=== PATIENT | male | born 1965 | race Two or more races ===

== ENCOUNTER 2016-12-27 22:25 | Inpatient (IN) | payer OTHER ==
--- NOTE | 2016-12-28 00:47 | PDOC ---
History of Present Illness - General History Source: Patient Exam Limitations: No Limitations - History of Present Illness Initial Comments: 12/28/16 01:13 The patient is a 51 year old male with no significant past medical history who presents to the ED with 2 days of left lower flank pain. Patient describes pain as 10/10, nonradiating and intermittent lasting 30 minutes to an hour. He states noting blood in his urine 3-4x yesterday. Denies dysuria, urgency, or frequency. He also reports vomiting once yesterday. The patient denies fever, chills, cough, SOB, chest pain, abdominal pain, and diarrhea. Allergies: NKDA Social History: No alcohol, tobacco, or drug use reported. Past Surgical History: appendectomy PCP: Dr. Chica Pendlteon <Aide Salguero - Last Filed: 12/28/16 03:11> <Jose A Martinez - Last Filed: 12/28/16 03:16> - General Chief Complaint: Hematuria Stated Complaint: STOMACH PAIN Past History <Aide Salguero - Last Filed: 12/28/16 03:11> - Surgical History Appendectomy: Yes - Psycho/Social/Smoking Cessation Hx Anxiety: No Suicidal Ideation: No Smoking History: Current every day smoker Have you smoked in the past 12 months: Yes Number of Cigarettes Smoked Daily: 5 Information on smoking cessation initiated: No 'Breaking Loose' booklet given: 08/16/16 Hx Alcohol Use: No Drug/Substance Use Hx: No Substance Use Type: None <Jose A Martinez - Last Filed: 12/28/16 03:16> - Past Medical History Allergies/Adverse Reactions: Allergies Allergy/AdvReac Type Severity Reaction Status Date / Time No Known Allergies Allergy Verified 12/28/16 01:55 Home Medications: Ambulatory Orders NK [No Known Home Medication] 12/28/16 Review of Systems - Review of Systems Able to Perform ROS?: Yes Comments:: 12/28/16 01:13 GENERAL/CONSTITUTIONAL: No fever or chills. No weakness. HEAD, EYES, EARS, NOSE AND THROAT: No change in vision. No ear pain or discharge. No sore throat. CARDIOVASCULAR: No chest pain or shortness of breath. RESPIRATORY: No cough, wheezing, or hemoptysis. GASTROINTESTINAL: +vomiting No diarrhea or constipation. GENITOURINARY: +left lower flank pain, hematuria No dysuria, frequency MUSCULOSKELETAL: No joint or muscle swelling or pain. No neck or back pain. SKIN: No rash NEUROLOGIC: No headache, vertigo, loss of consciousness, or change in strength/ sensation. ENDOCRINE: No increased thirst. No abnormal weight change. HEMATOLOGIC/LYMPHATIC: No anemia, easy bleeding, or history of blood clots. ALLERGIC/IMMUNOLOGIC: No hives or skin allergy. <Aide Salguero - Last Filed: 12/28/16 03:11> *Physical Exam - Vital Signs Last Vital Signs Temp Pulse Resp BP Pulse Ox 98.4 F 86 17 118/73 98 12/27/16 22:59 12/27/16 22:59 12/27/16 22:59 12/27/16 22:59 12/27/16 22:59 - Physical Exam Comments: 12/28/16 01:15 GENERAL: Awake, alert, and fully oriented, in no acute distress HEAD: No signs of trauma EYES: PERRLA, EOMI, sclera anicteric, conjunctiva clear ENT: Auricles normal inspection, hearing grossly normal, nares patent, oropharynx clear without exudates. Moist mucosa NECK: Normal ROM, supple, no lymphadenopathy, JVD, or masses LUNGS: Breath sounds equal, clear to auscultation bilaterally. No wheezes, and no crackles HEART: Regular rate and rhythm, normal S1 and S2, no murmurs, rubs or gallops ABDOMEN: Soft, nontender, normoactive bowel sounds. No guarding, no rebound. No masses EXTREMITIES: Normal range of motion, no edema. No clubbing or cyanosis. No cords, erythema, or tenderness MUSCULOSKELETAL: Left CVA tenderness NEUROLOGICAL: Cranial nerves II through XII grossly intact. Normal speech, normal gait SKIN: Warm, Dry, normal turgor, no rashes or lesions noted. <Aide Salguero - Last Filed: 12/28/16 03:11> - Vital Signs Last Vital Signs Temp Pulse Resp BP Pulse Ox 98.4 F 86 17 118/73 98 12/27/16 22:59 12/27/16 22:59 12/27/16 22:59 12/27/16 22:59 12/27/16 22:59 <Jose A Martinez - Last Filed: 12/28/16 03:16> ED Treatment Course - LABORATORY CBC & Chemistry Diagram: 12/28/16 00:36 12/28/16 00:36 - RADIOLOGY Radiograph Interpretation: 12/28/16 02:44 EXAM: CT abdomen and pelvis without contrast Reviewed by Imaging marketing operations manager: FINDINGS: Lung bases are clear. The visualized cardiac chambers are normal size and configuration. There is mild left hydronephrosis and perinephric inflammation secondary to a 7 mm proximal ureteral stone, beyond the UPJ. Additional small bilateral renal stones are noted. Normal unenhanced liver, gallbladder, pancreas, spleen, adrenal glands s. The stomach and abdominal small and large bowel are normal. There is no aortic aneurysm. There is no significant retroperitoneal lymphadenopathy. The pelvic small and large bowel are normal. There is no evidence of appendicitis, though the appendix is not clearly visualized. The urinary bladder and prostate gland are normal. No pelvic free fluid is identified. There is no significant pelvic lymphadenopathy. Tiny fat-containing left inguinal hernia is noted. Note is made of a left gluteal subcutaneous calcification, possibly injection granuloma. IMPRESSION: Mild left hydronephrosis and perinephric inflammation secondary to a 7 mm proximal ureteral stone, beyond the UPJ. Additional small bilateral renal stones. <Aide Salguero - Last Filed: 12/28/16 03:11> - LABORATORY CBC & Chemistry Diagram: 12/28/16 00:36 12/28/16 00:36 <Jose A Martinez - Last Filed: 12/28/16 03:16> Medical Decision Making - Medical Decision Making 12/28/16 03:[address] Dulce Dave covering for Dr. Chica Pendleton (via answering service) at 3 :07 Awaiting call back 12/28/16 03:12 Patient's case discussed with Dr. Dave at 3:12 <Aide Salguero - Last Filed: 12/28/16 03:11> - Medical Decision Making 12/28/16 03:14 Pt is a 51yo m with renal colic; 7mm stone LEFT UVJ; hydro; fluids, analgesia, antiemetics, cipro PO, flomax. I have endorsed the patient to Dr. Dave for [place] who agrees with plan. Renal consult in am. <Jose A Martinez - Last Filed: 12/28/16 03:16> *DC/Admit/Observation/Transfer - Attestations Scribe Attestion: 12/28/16 01:15 Documentation prepared by Aide Salguero, acting as durable medical equipment technician for Jose A Martinez MD, MD <Aide Salguero - Last Filed: 12/28/16 03:11> - Discharge Dispostion Admit: Yes Decision to Admit order Date/Time: 12/28/16 03:16 - Attestations Physician Attestion: 12/28/16 03:16 I, Dr. Jose A Martinez MD, attest that this document has been prepared under my direction and personally reviewed by me in its entirety. I further attest, that it accurately reflects all work, treatment, procedures and medical decision -making performed by me. <Jose A Martinez - Last Filed: 12/28/16 03:16> Diagnosis at time of Disposition: Calculus of kidney - Discharge Dispostion Condition at time of disposition: Guarded - Referrals Referrals: Chica Pendleton MD [Primary Care Provider] -
[2016-12-28 01:12] LABS: BASOPHIL 0.6 % (0-2.0); EOSINOPHIL 1.8 % (0-4.5); MCH 32.9 pg (25.7-33.7); MCHC 34.1 g/dl (32.0-35.9); MEAN CELL VOLUME 96.4 fl (80-96); MEAN PLT VOLUME 9.1 fl (7.5-11.1); NEUTROPHILS 58.8 % (42.8-82.8); PLATELET COUNT 166 K/MM3 (134-434); RDW 13.5 % (11.9-15.9); WHITE BLOOD COUNT 10.6 K/mm3 (4.0-10.0)
[2016-12-28 01:20] LABS: INR 1.23 (0.82-1.09); PROTHROMBIN TIME (PATIENT) 13.6 SEC (9.98-11.88)
[2016-12-28 01:21] LABS: URINE APPEARANCE CLEAR; URINE BILIRUBIN NEGATIVE (NEGATIVE); URINE COLOR YELLOW; URINE GLUCOSE (UA) NEGATIVE (NEGATIVE); URINE KETONE NEGATIVE (NEGATIVE); URINE LEUK ESTERASE NEGATIVE (NEGATIVE); URINE NITRITE NEGATIVE (NEGATIVE); URINE PROTEIN NEGATIVE (NEGATIVE); URINE UROBILINOGEN NEGATIVE E.U./dl (0.2-1.0)
[2016-12-28 01:33] LABS: ALBUMIN 3.6 g/dl (3.4-5.0); ALK PHOS 78 U/L (45-117); ANION GAP 9 (8-16); BILIRUBIN,TOTAL 0.2 mg/dL (0.2-1.0); CALCIUM 8.8 mg/dL (8.5-10.1); CO2 26 mmol/L (21-32); COCKROFT - GAULT 106.53; GLUCOSE,RANDOM 91 mg/dL (74-106); SGOT/AST 20 U/L (15-37); SGPT/ALT 25 U/L (12-78); TOT PROT 6.6 g/dl (6.4-8.2)
[2016-12-28 01:34] LABS: URINE BLOOD 3+ (NEGATIVE)
[2016-12-28 01:38] LABS: URINE MUCUS RARE; URINE RBC 382 /hpf (0-3); URINE WBC 3 /hpf (3-5)
[2016-12-28] MEDS ORDERED: SODIUM CHLORIDE 0.9% 1000 ML INFUS.BAG IV ONE (01:38)
[2016-12-28] MEDS ORDERED: KETOROLAC TROMETHAMINE 30 MG/1 ML VIAL IVPUSH ONE (01:38)
[2016-12-28] MEDS ORDERED: ONDANSETRON 4 MG/2 ML VIAL IVPUSH ONE ×2 (01:38→02:34)
[2016-12-28] MEDS ORDERED: CIPROFLOXACIN 250 MG TABLET (RESTRICTED TO ID) PO ONE (02:34)
[2016-12-28] MEDS ORDERED: TAMSULOSIN HCL 0.4 MG CAP.ER.24H (FP) PO ONE (02:34)
[2016-12-28] MEDS ORDERED: ONDANSETRON 4 MG/2 ML VIAL ONE (02:42)
[2016-12-28] MEDS ORDERED: KETOROLAC TROMETHAMINE 30 MG/1 ML VIAL ONE (02:42)
[2016-12-28] MEDS ORDERED: TAMSULOSIN HCL 0.4 MG CAP.ER.24H (FP) ONE (03:06)
[2016-12-28 06:52] VITALS: BMI 25.3
[2016-12-28] MEDS ORDERED: ACETAMINOPHEN 650 MG SUPP.RECT PR PRN ×2 (07:36→20:16)
[2016-12-28] MEDS ORDERED: morphine CARPU-JECT 4 MG/1 ML DISP.SYRIN IVPUSH PRN ×2 (07:36→20:16)
[2016-12-28] MEDS ORDERED: ONDANSETRON 4 MG/2 ML VIAL IVPB PRN ×2 (07:36→20:16)
[2016-12-28] MEDS ORDERED: DEXTROSE 5%-NORMAL SALINE 1,000 ML IV SCH ×2 (07:45→20:16)
--- NOTE | 2016-12-28 08:33 | CONSULT ---
Consult - text type - Consultation Consultation Note: CC: left renal colic with hydronephrosis HPI: Patient without significant PMH who presents with 48 hrs of left flank pain with nausea and vomiting. Patient has been unable to maintain a diet for 20 hrs plus. Patient with severe intermittent renal colic on the left. Patient describes chill but no fever. Denies dysuria or gross hematuria PE abd-soft, nontender; moderate left CVAT CT scan and labs reviewed discussed left ureteroscopic stone basketing with patient x 20 minutes impression left hydronephrosis with left 7mm proximal stone plan patient will be emergently taken to the OR today due to risk of renal injury and sepsis and inability to maintain a diet
--- NOTE | 2016-12-28 10:25 | HP ---
Admitting History and Physical - Primary Care Physician PCP: Chica Pendleton - Admission Chief Complaint: SEVERE FLANK PAIN/URINARY RETENTION/HEMATUREA History of Present Illness: The patient is a 51 year old male with no significant past medical history who presents to the ED with 2 days of left lower flank pain. Patient describes pain as 10/10, nonradiating and intermittent lasting 30 minutes to an hour. He states noting blood in his urine 3-4x yesterday. Denies dysuria, urgency, or frequency. He also reports vomiting once yesterday. The patient denies fever, chills, cough, SOB, chest pain, abdominal pain, and diarrhea. History Source: Patient - Smoking History Smoking history: Current every day smoker Have you smoked in the past 12 months: Yes Aproximately how many cigarettes per day: 5 - Alcohol/Substance Use Hx Alcohol Use: No Home Medications - Allergies Allergies/Adverse Reactions: Allergies Allergy/AdvReac Type Severity Reaction Status Date / Time No Known Allergies Allergy Verified 12/28/16 01:55 - Home Medications Home Medications: Ambulatory Orders NK [No Known Home Medication] 12/28/16 Review of Systems - Review of Systems Constitutional: reports: Lethargy, Weakness Eyes: reports: No Symptoms HENT: reports: No Symptoms Neck: reports: No Symptoms Cardiovascular: reports: No Symptoms Respiratory: reports: No Symptoms Gastrointestinal: reports: Abdominal Pain, Nausea, Vomiting Genitourinary: reports: Dysuria, Hematuria, Other Musculoskeletal: reports: Back Pain Integumentary: reports: No Symptoms Neurological: reports: No Symptoms Endocrine: reports: No Symptoms Hematology/Lymphatic: reports: No Symptoms Psychiatric: reports: No Symptoms Physical Examination Vital Signs: Vital Signs Temperature 97.8 F 12/28/16 09:28 Pulse Rate 72 12/28/16 09:28 Respiratory Rate 15 12/28/16 09:28 Blood Pressure 103/68 12/28/16 09:28 O2 Sat by Pulse Oximetry (%) 99 12/28/16 06:29 Constitutional: Yes: Severe Distress Eyes: Yes: WNL HENT: Yes: WNL Neck: Yes: WNL Cardiovascular: Yes: WNL Respiratory: Yes: WNL Gastrointestinal: Yes: Tenderness Renal/: Yes: CVA Tenderness - Left, Other Musculoskeletal: Yes: Back Pain, Muscle Weakness Extremities: Yes: Other Edema: No Peripheral Pulses WNL: Yes Integumentary: Yes: WNL Wound/Incision: Yes: Clean/Dry Neurological: Yes: WNL ...Motor Strength: WNL Psychiatric: Yes: WNL Imaging - Results Cat Scan: Report Reviewed Problem List - Problems (1) Renal stone Code(s): N20.0 - CALCULUS OF KIDNEY (2) Acute urinary retention Code(s): R33.8 - OTHER RETENTION OF URINE (3) Intractable back pain Code(s): M54.9 - DORSALGIA, UNSPECIFIED Assessment/Plan UROLOGICAL EMERGENCY STAT CYSTOSCOPY WITH BASKET CATCH 7MM LEFT URETRAL STONE PAIN CONTROL IVF BENEFIT OUTWEIGHS RISK, NO CONTRAINDICATION TO PROCEDURE
[2016-12-28] MEDS ORDERED: ONDANSETRON 4 MG/2 ML VIAL IVPUSH PRN ×2 (18:57→20:16)
[2016-12-28] MEDS ORDERED: LACTATED RINGERS SOLUTION 1,000 ML IV SCH ×2 (19:00→20:16)
[2016-12-28] MEDS ORDERED: PROPOFOL 20 ML ONE (19:11)
[2016-12-28] MEDS ORDERED: MIDAZOLAM HCL 2 MG/2 ML SINGLE DOSE VIAL ONE (19:11)
[2016-12-28] MEDS ORDERED: LEVOFLOXACIN 500 MG IVPB 100 ML IVPB ONE (19:19)
[2016-12-28] MEDS ORDERED: LEVOFLOXACIN 500 MG PREMIX BAG IVPB ONE (19:21)
[2016-12-28] MEDS ORDERED: IOHEXOL 300 MG/ML INFUS..BTL IJ ONE (19:29)
[2016-12-28] MEDS ORDERED: DEXAMETHASONE SOD PHOSPHATE 4 MG/1 ML VIAL ONE (19:39)
--- NOTE | 2016-12-28 19:45 | OP ---
Operative Note - Note: Operative Date: 12/28/16 Pre-Operative Diagnosis: left upper ureteral stone with hydronephrosis Operation: cystoscopy/left retrograde pyelogram/left ureteroscopic stone manipulation/left ureteral stent placement Findings: impacted upper ureteral stone measuring 7-10 mm with grade 4/5 hydronephrosis Post-Operative Diagnosis: Same as Pre-op (impacted stone) Surgeon: Jose Cutler Anesthesia: General Drains & Tubes with Location: 6 fr/24 cm left ureteral stent Operative Report Dictated: Yes
--- NOTE | 2016-12-28 21:18 | OP ---
DATE OF OPERATION: 12/28/2016 PREOPERATIVE DIAGNOSIS: Left hydronephrosis with left ureteral stone. POSTOPERATIVE DIAGNOSIS: Left hydronephrosis with left ureteral stone with impacted left upper ureteral stone. ATTENDING: Kaya Quintero MD ANESTHESIA: General. PROCEDURE: Cystoscopy, left retrograde pyelogram, left ureteroscopic stone manipulation, left ureteral stent placement. OPERATION: The patient is taken emergently to the operating room due to an obstructive 7+ mm upper ureteral stone. The patient is at risk of sepsis and renal damage. The patient also has intractable pain and is unable to maintain a diet. The patient has all risks and benefits explained to him regarding the procedure. Patient was brought to the operating room and placed in the supine position on the operating table. Antibiotics are administered and general anesthesia administered without complication. The patient was placed in the dorsal lithotomy position, prepped and draped in the usual sterile manner. Cystoscopy was performed and there was no evidence of stone within the bladder. A 2+ obstructive prostate with 1+ bladder trabeculation was noted. No evidence of neoplasm within the bladder was seen. Blood clots were noted in the bladder. A retrograde pyelogram showed an obstructing upper ureteral stone with no contrast entering into the kidney. The stone measured 7-10 mm in size. A wire was placed with difficulty. The wire had to be manipulated multiple times in order to gain passage to the kidney. At this point, ureteroscopy was performed. The ureteroscope was taken to the level of the upper ureter and with water pressure, the stone was visualized. The stone was impacted with significant edema and erythema surrounding the stone. The stone at this point was manipulated in order to position the stone for laser lithotripsy, utilizing the Holmium laser. With the water pressure and ureteroscopic manipulation, the stone migrated into the kidney. At this point, the ureter in the left kidney started draining. This kidney was pyuric and hematuric in nature. Visualization was minimal. In order to avoid damage to the kidney, it was decided to leave the patient with a stent at this point. A stent was placed over the wire, utilizing the Seldinger technique. No complications were noted. The patient tolerated the procedure very well. KAYA QUINTERO M.D. /[id number]
[2016-12-29 07:29] LABS: MCH 32.9 pg (25.7-33.7); MCHC 33.7 g/dl (32.0-35.9); MEAN CELL VOLUME 97.5 fl (80-96); MEAN PLT VOLUME 9.2 fl (7.5-11.1); PLATELET COUNT 146 K/MM3 (134-434); RDW 12.9 % (11.9-15.9); WHITE BLOOD COUNT 9.5 K/mm3 (4.0-10.0)
[2016-12-29 07:55] LABS: ALBUMIN 3.1 g/dl (3.4-5.0); ALK PHOS 60 U/L (45-117); ANION GAP 6 (8-16); BILIRUBIN,TOTAL 0.4 mg/dL (0.2-1.0); CALCIUM 8.4 mg/dL (8.5-10.1); CO2 26 mmol/L (21-32); COCKROFT - GAULT 119.69; CREATININE 0.9 mg/dL (0.7-1.3); GLUCOSE,RANDOM 134 mg/dL (74-106); SGOT/AST 16 U/L (15-37); SGPT/ALT 22 U/L (12-78); TOT PROT 6.2 g/dl (6.4-8.2)
--- NOTE | 2016-12-29 14:41 | DS ---
Physical Examination Vital Signs: Vital Signs Temperature 98.7 F 12/29/16 09:00 Pulse Rate 78 12/29/16 09:00 Respiratory Rate 20 12/29/16 09:00 Blood Pressure 124/65 12/29/16 09:00 O2 Sat by Pulse Oximetry (%) 100 12/29/16 09:00 Constitutional: Yes: Mild Distress Eyes: Yes: WNL HENT: Yes: WNL Neck: Yes: WNL Cardiovascular: Yes: WNL Respiratory: Yes: WNL Gastrointestinal: Yes: Tenderness Renal/: Yes: Other Musculoskeletal: Yes: Muscle Weakness Extremities: Yes: WNL Edema: No Peripheral Pulses WNL: Yes Integumentary: Yes: WNL Wound/Incision: Yes: Clean/Dry Neurological: Yes: WNL ...Motor Strength: WNL Psychiatric: Yes: WNL Labs: CBC, BMP 12/29/16 06:15 12/29/16 06:15 Discharge Summary Reason For Visit: CALCULUS OF KIDNEY Current Active Problems Acute urinary retention (Acute) Intractable back pain (Acute) Renal stone (Acute) Procedures: Principal: CYSTOSCOPY Other Procedures: CT/SONO Hospital Course: ADMITTED FOR URINARY RETENTION , HEMATUREA, FLANK PAIN, FOUND TO HAVE RENAL COLIC ACUTE, CYSTOSCOPY DONE AND WILL NEED OUTPATIENT ESWL. F/U SUNDAY WITH , AND WITH ME IN 1 WEEK Condition: Stable - Instructions Diet, Activity, Other Instructions: INCREASE FLUID INTAKE 6-8 GLASSES WATER DAILY SEE DR CORONA SUNDAY Referrals: Chica Pendleton MD [Primary Care Provider] - Disposition: HOME - Home Medications Comprehensive Discharge Medication List: Ambulatory Orders NK [No Known Home Medication] 12/28/16
[2016-12-29 14:58] VITALS: BP 124/6; PULSE 74; TEMP 98.3
== END 2016-12-29 15:23 | disposition home or self-care (01) | DRG 465 ==
LOC: JER 22:25 → JERBED 12-28 03:16 → UNDOADMIN 12-28 03:35 → JERBED 12-28 03:35 → J8W 12-28 05:42
PROVIDERS: ADMIT Family Medicine; ATTEND Family Medicine
PROC: 0T778DZ Dilation of Left Ureter with Intraluminal Device, Via Natural or Artificial Opening Endoscopic (ICD-10-PCS; principal; 2016-12-28 15:00)
PROC: BT1FYZZ Fluoroscopy of Left Kidney, Ureter and Bladder using Other Contrast (ICD-10-PCS; 2016-12-28 15:00)
DX: N13.2 Hydronephrosis with renal and ureteral calculous obstruction (principal); R33.9 Retention of urine, unspecified; R31.9 Hematuria, unspecified; F17.210 Nicotine dependence, cigarettes, uncomplicated
CPT/HCPCS: 36415; 74176-TC; 76000-TC; 80053; 81003; 81015; 85025; 85027; 85610; 86850; 86900; 86901; 94760; 99284-25

== ENCOUNTER 2017-01-01 09:32 | Day surgery (SDC) | payer OTHER ==
[2016-12-29 17:27] VITALS: BMI 25.3
[~2017-01-01 09:32] MED LIST: LEVOFLOXACIN 500 MG PREMIX BAG IVPB ONE
[2017-01-01] MEDS ORDERED: MIDAZOLAM HCL 2 MG/2 ML SINGLE DOSE VIAL ONE ×3 (12:06→12:17)
[2017-01-01] MEDS ORDERED: LEVOFLOXACIN 500 MG PREMIX BAG IVPB ONE (12:09)
[2017-01-01] MEDS ORDERED: DEXAMETHASONE SOD PHOSPHATE 4 MG/1 ML VIAL ONE (12:31)
--- NOTE | 2017-01-01 13:15 | OP ---
Operative Note - Note: Operative Date: 01/01/17 Pre-Operative Diagnosis: left renal stone Operation: left eswl Findings: two 7mm left renal stones Post-Operative Diagnosis: Same as Pre-op Anesthesia: General Operative Report Dictated: Yes
[2017-01-01] MEDS ORDERED: LEVOFLOXACIN 500 MG IVPB 100 ML IVPB ONE (13:42)
[2017-01-01 14:08] VITALS: TEMP 97.9
[2017-01-01 15:46] VITALS: BP 130/78; PULSE 80
--- NOTE | 2017-01-01 20:38 | OP ---
DATE OF OPERATION: 01/01/2017 PREOPERATIVE DIAGNOSIS: Left renal stones. POSTOPERATIVE DIAGNOSIS: Left renal stones. PROCEDURE: Left extracorporeal shock-wave lithotripsy. ATTENDING: Kaya Quintero MD ANESTHESIA: General. OPERATION: The patient was brought in the operating room, placed in supine position on the operating room table. Ultrasonography and fluoroscopy were performed. The left ureteral stent was identified. Two stones, each measuring 7 mm, were identified in the upper and mid poles of the left kidney. Extracorporeal shock-wave lithotripsy was performed, 2000 impulses was administered to the midpole stone and 1000 impulses at the upper pole stone at a power level of 20 joules. Excellent fragmentation of the stones was noted under real-time ultrasonography and fluoroscopy. No complications were noted. The disposition of patient was to recovery room. KAYA QUINTERO M.D. /[id number]
== END 2017-01-01 15:25 | disposition home or self-care (01) ==
LOC: JASU-SURG 09:32
PROVIDERS: ATTEND Urology
PROC: 0TF4XZZ Fragmentation in Left Kidney Pelvis, External Approach (ICD-10-PCS; principal; 2017-01-01 11:15)
DX: N20.0 Calculus of kidney (principal)
CPT/HCPCS: 94760

== ENCOUNTER 2017-09-14 08:10 | Emergency (ER) | payer OTHER ==
[2017-09-14 08:15] VITALS: BMI 25.7
--- NOTE | 2017-09-14 09:12 | PDOC ---
History of Present Illness - History of Present Illness Initial Comments: 09/14/17 09:55 The patient is a 51 year old male, with no significant past medical history, who presents to the emergency department with, intermittent right and left flank pain for approx. 4-5 months, worse on the R. The pain does not radiate. The patient reports the pain has been progressively worse in the past 4 weeks and reports the pain is now constant fort he apst 2-3 days where he cannot sleep. The patient reports he visited a urologist Dr. Femi Michele the past and was dx with kidney stones, he also has had lithrotrypsy in the past for a kidney stone. The patient reports associated symptoms of slight dysuria. He denies any recent fevers, chills, headache or dizziness. He denies any recent nausea, vomit, diarrhea or constipation. He denies any recent chest pain or shortness of breath. He denies any recent frequency, urgency or hematuria. Allergies: NKA Primary Care Physician: Dr. Dave Urologist: Dr. Sheila Feldman <Phi Romo - Last Filed: 09/14/17 13:01> - General History Source: Patient Exam Limitations: No Limitations - History of Present Illness Travel History: No <Sorin Ortiz - Last Filed: 09/14/17 14:21> - General Chief Complaint: Pain Stated Complaint: flank pain BACK PAIN Time Seen by Provider: 09/14/17 09:06 Past History <Phi Romo - Last Filed: 09/14/17 13:01> - Past Medical History Anemia: No Asthma: No Cancer: No Cardiac Disorders: No CVA: No COPD: No CHF: No DVT: No Dementia: No Diabetes: No GI Disorders: No Disorders: Yes (stone basketing and stent placement) HTN: No Hypercholesterolemia: No Liver Disease: No Seizures: No Thyroid Disease: No - Surgical History Appendectomy: Yes - Suicide/Smoking/Psychosocial Hx Smoking History: Current every day smoker Have you smoked in the past 12 months: Yes Number of Cigarettes Smoked Daily: 15 Information on smoking cessation initiated: Yes 'Breaking Loose' booklet given: 09/14/17 Hx Alcohol Use: No Drug/Substance Use Hx: No Substance Use Type: None <Sorin Ortiz - Last Filed: 09/14/17 14:21> - Past Medical History Allergies/Adverse Reactions: Allergies Allergy/AdvReac Type Severity Reaction Status Date / Time No Known Allergies Allergy Verified 09/14/17 08:11 Home Medications: Ambulatory Orders NK [No Known Home Medication] 12/29/16 Review of Systems - Review of Systems Comments:: 09/14/17 09:55 Constitutional - Pt denies Fever, Chills, weakness, HEENT: denies vision changes, sore throat Respiratory: Denies cough, sob, hemoptysis Cardiac: denies chest pain, palpitations, light headedness, leg swelling Abd/GI: denies abd pain, nausea, vomiting, blood per rectum, melena, diarrhea : +Dysuria. No frequency, discharge Musculoskelatal - +Right and Left flank pain. No joint swelling skin - denies bruising, erythema, rash neurological: denies headache, numbness, focal weakness, tingling, ataxia, weakness hematologic: denies anemia, easy bruising, easy bleeding <Phi Romo - Last Filed: 09/14/17 13:01> *Physical Exam - Vital Signs Last Vital Signs Temp Pulse Resp BP Pulse Ox 97.9 F 106 H 18 124/100 100 09/14/17 08:12 09/14/17 08:12 09/14/17 08:12 09/14/17 08:12 09/14/17 08:12 - Physical Exam Comments: 09/14/17 09:56 GENERAL: The patient is awake, alert, and fully oriented, Nontoxic - in no acute distress. HEAD: Normocephalic, atraumatic. EYES: extraocular movements intact, sclera anicteric, conjunctiva clear. ENT: Normal voice, Moist mucous membranes. NECK: Normal range of motion, supple without lymphadenopathy, JVD, or masses. LUNGS: Breath sounds equal, clear to auscultation bilaterally. No wheezes, no crackles, no rales. HEART: Regular rate and rhythm, normal S1 and S2 without murmur, rub or gallop. ABDOMEN: Soft, nontender, normoactive bowel sounds. No guarding, no rebound. No masses. BACK: +Mild CVA tenderness. EXTREMITIES: Normal range of motion, no edema. No clubbing or cyanosis. No cords, erythema, or tenderness. NEUROLOGICAL: No facial assymetry, Normal speech, normal gait. PSYCH: Normal mood, normal affect. SKIN: Warm, Dry, normal turgor, no rashes or lesions noted. <Phi Romo - Last Filed: 09/14/17 13:01> - Vital Signs Last Vital Signs Temp Pulse Resp BP Pulse Ox 97.9 F 106 H 18 124/100 100 09/14/17 08:12 09/14/17 08:12 09/14/17 08:12 09/14/17 08:12 09/14/17 08:12 <Sorin Ortiz - Last Filed: 09/14/17 14:21> ED Treatment Course - LABORATORY CBC & Chemistry Diagram: 09/14/17 09:55 09/14/17 09:55 - RADIOLOGY Radiograph Interpretation: 09/14/17 13:01 EXAM#: TYPE/EXAM: RESULT: [id number] US/KIDNEY / RENAL US Renal ultrasound CLINICAL INFORMATION: evaluate for hydronephrosis, kidney stone No definite hydronephrosis is identified. Small bilateral renal calculi described on CT performed 12/28/2016 cannot be appreciated on sonography. There is been apparent interval resolution of mild left hydronephrosis since the previous CT exam. CT at that time had demonstrated a proximal left ureteral calculus. The kidneys appear unremarkable in position, cortical thickness, echogenicity and size. Each kidney measures approximately 11.7 cm in length. No obvious mass lesion is identified. IMPRESSION: No hydronephrosis is seen. Small bilateral renal calculi identified on CT of 12/28/2016 cannot be appreciated on sonography. Reported By: Otis Arteaga MD <Phi Romo - Last Filed: 09/14/17 13:01> - LABORATORY CBC & Chemistry Diagram: 09/14/17 09:55 09/14/17 09:55 <Sorin Ortiz - Last Filed: 09/14/17 14:21> Medical Decision Making - Medical Decision Making 09/14/17 09:33 51y M hx of kidney stones s/p lithotrypsy presents with complaint of R flank pain x 5 months, intermittent, nonradiating, but worse eduar past 2-3 days where he can no longer sleep. Pt denies any fever/chills, n/v, groin pain, dysuria, cp , sob. on exam pt appears i no distress, mild R cva tenderness will ck ua to r/o hematuria and infection will ck basic labs fluids, toradol for pain will reassess A portion of this note was documented by scribe services under my direction. I have reviewed the details of the note, within reason, and agree with the documentation with the following case summary and management plan written by me 09/14/17 14:19 The patient's blood work was reviewed there is mild hematuria noted the patient' s ultrasound shows no signs of hydronephrosis. The patient's pain is controlled will have the patient follow-up with urology for further management Return precautions were discussed I discussed the physical exam findings, ancillary test results and final diagnoses with the patient. I answered all of the patient's questions. The patient was satisfied with the care received and felt comfortable with the discharge plan and treatment plan. The patient will call their primary care physician within 24 hours to arrange follow-up and will return to the Emergency Department with any new, persistent or worsening symptoms. <Sorin Ortiz - Last Filed: 09/14/17 14:21> *DC/Admit/Observation/Transfer - Attestations Scribe Attestion: 09/14/17 09:56 Documentation prepared by Phi Romo, acting as medical office administrator for Sorin Ortiz MD. <Phi Romo - Last Filed: 09/14/17 13:01> - Discharge Dispostion Admit: No <Sorin Ortiz - Last Filed: 09/14/17 14:21> Diagnosis at time of Disposition: Renal colic on right side - Discharge Dispostion Disposition: HOME Condition at time of disposition: Improved - Referrals Referrals: Chica Pendleton MD [Primary Care Provider] - Jose Cutler MD [Staff Physician] - - Patient Instructions Printed Discharge Instructions: Kidney Stones -- Adult, DI for Kidney Stones Additional Instructions: Return to the emergency department immediately with ANY new, persistent or worsening symptoms including worsening abdominal pain, fevers, inability to tolerate oral intake, chest pain, shortness of breath or any other concerns. Take Tylenol as needed for your pain Stay well hydrated. You MUST call and follow up with your urologist within the next 2 or 3 days for further evaluation. Your emergency department visit is not complete without a followup with your doctor for reevaluation. Please make sure your doctor reviews the results of your emergency evaluation. - Post Discharge Activity
--- NOTE | 2017-09-14 09:16 | PDOC ---
Attending Attestation - Resident Resident Name: Pancho Redman (s)
[2017-09-14] MEDS ORDERED: KETOROLAC TROMETHAMINE 30 MG/1 ML VIAL IVPUSH ONE ×2 (09:27→11:05)
[2017-09-14] MEDS ORDERED: SODIUM CHLORIDE 1,000 ML IV ONE (09:33)
[2017-09-14] MEDS ORDERED: KETOROLAC TROMETHAMINE 15 MG/ML VIAL ONE (09:50)
[2017-09-14 10:04] LABS: URINE APPEARANCE CLEAR; URINE BILIRUBIN NEGATIVE (NEGATIVE); URINE BLOOD 1+ (NEGATIVE); URINE COLOR YELLOW; URINE GLUCOSE (UA) NEGATIVE (NEGATIVE); URINE KETONE NEGATIVE (NEGATIVE); URINE LEUK ESTERASE NEGATIVE (NEGATIVE); URINE NITRITE NEGATIVE (NEGATIVE); URINE PROTEIN NEGATIVE (NEGATIVE); URINE UROBILINOGEN NEGATIVE mg/dL (0.2-1.0)
[2017-09-14 10:08] LABS: BASO % 0.7 % (0-2.0); EOS % 0.9 % (0-4.5); HEMATOCRIT 46.7 % (35.4-49); HEMOGLOBIN 15.3 GM/dL (11.7-16.9); LYMPH % 20.5 % (8-40); MCH 31.2 pg (25.7-33.7); MCHC 32.8 g/dl (32.0-35.9); MEAN CELL VOLUME 94.9 fl (80-96); MEAN PLT VOLUME 8.9 fl (7.5-11.1); MONO % 9.4 % (3.8-10.2); NEUT % 68.5 % (42.8-82.8); PLATELET COUNT 182 K/MM3 (134-434); RBC 4.93 M/mm3 (4.00-5.60); RDW 13.1 % (11.9-15.9); WHITE BLOOD COUNT 9.7 K/mm3 (4.0-10.0)
[2017-09-14 10:38] LABS: ALBUMIN 3.7 g/dl (3.4-5.0); ALK PHOS 80 U/L (45-117); ANION GAP 4 (8-16); BILIRUBIN,TOTAL 0.5 mg/dL (0.2-1.0); BLOOD UREA NITROGEN 15 mg/dL (7-18); CALCIUM 8.7 mg/dL (8.5-10.1); CHLORIDE 108 mmol/L (98-107); CO2 30 mmol/L (21-32); CREATININE 1.1 mg/dL (0.7-1.3); GLUCOSE,RANDOM 75 mg/dL (74-106); SGOT/AST 26 U/L (15-37); SGPT/ALT 28 U/L (12-78); SODIUM 142 mmol/L (136-145); TOT PROT 7.1 g/dl (6.4-8.2)
[2017-09-14 11:50] LABS: URINE MUCUS RARE
[2017-09-14 14:30] VITALS: BP 123/72; PULSE 71; TEMP 98.4
== END 2017-09-14 14:30 | disposition home or self-care (01) ==
LOC: JER 08:10
PROC: 3E0333Z Introduction of Anti-inflammatory into Peripheral Vein, Percutaneous Approach (ICD-10-PCS; principal; 2017-09-14)
PROC: 3E0337Z Introduction of Electrolytic and Water Balance Substance into Peripheral Vein, Percutaneous Approach (ICD-10-PCS; 2017-09-14)
DX: N23 Unspecified renal colic (principal)
CPT/HCPCS: 36415; 76775-TC; 80053; 81003; 81015; 85025; 96360; 96374; 99283-25